=== PATIENT | female | born 1945 | race Caucasian/White ===

== ENCOUNTER 2025-03-19 06:31 | Day surgery (SDC) | payer MEDICARE, OTHER, SELFPAY | END 2025-03-19 14:50 | disposition home or self-care (01) | LOC: GI 06:31 | PROVIDERS: ATTENDING PHYSICIAN Internal Medicine Gastroenterology | DX: Z12.11 Encounter for screening for malignant neoplasm of colon (principal); K64.0 First degree hemorrhoids; K57.30 Diverticulosis of large intestine without perforation or abscess without bleeding; K63.89 Other specified diseases of intestine; R10.13 Epigastric pain; R68.81 Early satiety; K44.9 Diaphragmatic hernia without obstruction or gangrene; K31.89 Other diseases of stomach and duodenum; R14.0 Abdominal distension (gaseous); D12.5 Benign neoplasm of sigmoid colon; K63.5 Polyp of colon; Z86.0100 Personal history of colon polyps, unspecified | CPT/HCPCS: 45385; 45381; 45380; 43239; 88305; 88342 ==

== ENCOUNTER → 2025-04-17 08:43 | Outpatient (REF) | payer MEDICARE, OTHER, SELFPAY | LOC: RAD 08:43 | PROVIDERS: ATTENDING PHYSICIAN Internal Medicine Gastroenterology; FAMILY PHYSICIAN Internal Medicine | DX: K44.9 Diaphragmatic hernia without obstruction or gangrene (principal) | CPT/HCPCS: 74221 ==

== ENCOUNTER → 2025-07-14 07:34 | Outpatient (REF) | payer MEDICARE, OTHER, SELFPAY | LOC: RAD 07:34 | PROVIDERS: ATTENDING PHYSICIAN Internal Medicine Gastroenterology; FAMILY PHYSICIAN Family Medicine | DX: R14.0 Abdominal distension (gaseous) (principal); R68.81 Early satiety | CPT/HCPCS: 78264; A9541 ==

== ENCOUNTER 2025-08-21 08:00 | Emergency (ER) | payer MEDICARE, OTHER, SELFPAY ==
[2025-08-21 08:02] VITALS: BP 182/88
--- NOTE | 2025-08-21 09:09 | ED.GENMED ---
History of Present Illness
General
Chief Complaint: Fall
Time Seen by Provider: 08/21/25 08:50
History of Present Illness
History of Present Illness:
see MDM
Past History
Past History
ED Past Medical History: GERD and Hypercholesterolemia
ED Past Surgical History: Orthopedic
Social History
Tobacco: Non-smoker
Alcohol: None
Personal:
Living: with family
Phy Exam
Physical Exam
Physical Exam:
see MDM
Course
Orders/Labs/Results
Orders:
Orders
08/21/25 08:06
Hand, Right 3 View [CR Hand - Right Min 3 Views] Urgent
Comment:
Reason For Exam: fall, pain
08/21/25 08:30
CT Facial Bones W/o Iv Contras Urgent
Comment:
Reason For Exam: fall, R orbital swelling, pain
CT Head W/o Iv Contrast Urgent
Comment:
Reason For Exam: fall, head strike
08/21/25 09:16
Acetaminophen [Tylenol] 1,000 mg PO NOW STA
08/21/25 10:30
CR Hand - Right Min 3 Views Urgent
Comment:
Reason For Exam: post reduction
Vital Signs
Initial and Last Documented VS:
Initial Vital Signs
Temp Pulse Resp BP Pulse Ox
36.6 C 76 16 182/88 98
08/21/25 08:02 08/21/25 08:02 08/21/25 08:02 08/21/25 08:02 08/21/25 08:02
Last Documented Vital Signs
Temp Pulse Resp BP Pulse Ox
36.6 C 76 16 182/88 98
08/21/25 08:02 08/21/25 08:02 08/21/25 08:02 08/21/25 08:02 08/21/25 09:12
Procedures
Joint/Fracture Reduction
Right Freight Booker:
Indication for procedure:: displaced R 5th metacarpal fx
Procedure completed by: myself
Consent form signed: No
If no, reason: Emergency procedure (verbal)
Joint reduced: without anesthesia
Anesthesia/sedation: Injection to joint space
Injury was: closed
Further treatement: needs further treatment
Post reduction exam: stable
Capillary Refill: normal
Normal distal neurovascular exam?: Yes
MDM/Problems Addressed
Differential Diagnosis Includes:
see MDM
MDM/Problems Addressed:
Note:
CHIEF COMPLAINT(S)
Fall with subsequent dizziness.
HISTORY OF PRESENT ILLNESS
The patient is a 80-year-old female who experienced a fall today while walking the dog at approximately 7:15 AM. She reports witnessing deer by the pond during the event. The patient states she does not believe she lost consciousness. She does not
report any pain in her neck, though she does describe lightheadedness and dizziness following the fall. She also reported facial pain, but no numbness or tingling in her extremities.
The patient managed to get herself up after the incident and walked back home. She has a history of osteoarthritis, osteoporosis, and diverticulitis, commonly referenced as 'gut stuff.' Her blood pressure, cholesterol, and vision are described as
stable, with regular use of corrective eyewear. The patient recently received a tetanus vaccination, likely within the past year.
she denies neck pain, vision changes, chest pain, hip pain, weakness, vomiting, nauesa, dental injury
PAST MEDICAL AND SURIGICAL HISTORY
The patient has a history of osteoarthritis, osteoporosis, and diverticulitis.
CHRONIC MEDICAL CONDITIONS SIGNIFICANTLY AFFECTING CARE
Osteoarthritis, osteoporosis, and diverticulitis.
MEDICATIONS
The patient is currently on anticoagulant therapy.
PHYSICAL EXAM
GENERAL: Alert , in no apparent distress
HEAD: Right periorbital swelling and ecchymosis but can open her eye mild tenderness, mild superficial abrasion to the right zygoma
NECK: no midline tenderness, active ROM intact, no paraspinal muscle tenderness;
EYE: pupils equal and reactive, EOMs intact.
ENT: o/p clr, mmm. no hemotympanum
CARDIAC: Regular rate and rhythm, no edema
LUNGS: Clear breath sounds bilaterally, no acute respiratory distress, no wheezes/rales/rhonchi
ABDOMEN: Soft, without focal tenderness, no r/g, no cvat
NEUROLOGICAL: Alert and oriented, no focal neuro deficits, CN intact, 5/5 strength, sensation intact
SKIN: Warm and dry, superficial abrasion right zygoma
MUSCULOSKELETAL: . Right fifth metacarpal tenderness with swelling soft tissue, no rotation of the fifth digit, otherwise musculoskeletal exam normal
Nursing notes reviewed and vital signs reviewed.
PROBLEM LIST
- Acute: Fall with dizziness, facial pain.
- Chronic: Osteoarthritis and osteoporosis.
PLAN
- Administer acetaminophen (Tylenol) for pain management.
- Await results from the CT scan to rule out facial fractures, brain bleed, or skull fracture.
- Possible referral to an ear, nose, and throat specialist if facial fractures are confirmed.
- Discussed clinical suspicion of a mild concussion; no specific testing is indicated.
DIFFERENTIAL DIAGNOSIS
The Differential Diagnosis includes, in no particular order and is not limited to:
1. Concussion
2. Skull fracture
3. Facial fracture
4. Brain bleed (intracranial hemorrhage)
5. Postural hypotension
6. Syncope
7. Vestibular dysfunction
8. Cardiac arrhythmia
9. Dehydration
10. Medication side-effects
CARE-UPDATE
08/21/25 - 09:09
Consulted with [facility], who recommend applying a splint to the right hand and arranging for follow-up in the orthopedic clinic. The patient is advised to avoid using the right hand to prevent further injury. Pain management includes
acetaminophen as needed. Monitor for any signs of increased swelling, changes in vision, or worsening headaches. The patient understands and agrees with the plan.
*Pulse Oximetry
SaO2: 98
Oxygen Mode of Delivery: Room air
Patient hypoxic: no (98)
*Critical Care Note
Total Time (30-74mins, 75-104mins- exclusive of procedures): Not Applicable
ED Attending Note
-
Portions of this chart may have been created with voice recognition software.� Occasional wrong word or��sound alike� substitutions may have occurred due to the inherent limitations of voice recognition software.
Discharge Plan
Departure
Patient Disposition: Home (Routine Discharge)
Date of Disposition: 08/21/25
Time of Disposition: 11:38
Patient with high blood pressure during this ER visit?: Yes
Condition: Fair
Covid-19: Not Applicable
Discharge Problem:
Fracture of metacarpal, Contusion of face, Concussion
Instructions: Concussion, Adult (DC), Contusion (DC)
Referrals:
Jessa Abbott MD [Family Provider, Family Practice] - Follow up in 2-3 days
Saman Salcido MD [Active, Orthopedics] - Follow up in 5-7 days
Activity Restrictions/Additional Instructions:
You broke your fifth metacarpal. You need to see a hand doctor. Please call and make an appointment. Until then ice on top of the splint and elevate your arm. Take Tylenol for pain. Do not get the splint wet.
You may have a minor concussion but your head scan and facial bones were normal on the CAT scan. This can take time to resolve with headaches and mild dizziness and nausea. Have a light diet, be careful when you go from sitting to standing, rest
your brain by avoiding TV, phone, computer, reading for about 2 days. After that you can return to those activities as normal. If you are still having prolonged symptoms of a concussion please see your doctor. Return to the ER for worst headache
of your life, confusion, double vision, etc.
Interventions
Interventions:
*Risk Screen - Suicide Last Done: 08/21/25 08:02
*General Assessment Last Done: 08/21/25 08:04
*Neglect/Abuse Screening Last Done: 08/21/25 11:45
*ED- Fall Risk Assessment Last Done: 08/21/25 08:04
*ED COVID-19 Vaccine History Last Done: 08/21/25 08:04
*ED Influenza Vaccine History Last Done: 08/21/25 08:04
*Nursing Disposition Last Done: 08/21/25 11:45
ED-Musculoskeletal Assessment Last Done: 08/21/25 09:51
ED- Neurological Assessment Last Done: 08/21/25 09:51
ED-Skin Assessment Last Done: 08/21/25 09:51
Discharge Date and Time
Discharge Date/Time: 08/21/25 11:45
Print Language: SAO TOMEAN
[2025-08-21] MEDS: TYLENOL 1000 MG PO (09:48)
== END 2025-08-21 11:45 | disposition home or self-care (01) ==
LOC: EMR 08:00
PROVIDERS: EMERGENCY PHYSICIAN Student in an Organized Health Care Education/Training Program; FAMILY PHYSICIAN Family Medicine
DX: S62.316A Displaced fracture of base of fifth metacarpal bone, right hand, initial encounter for closed fracture (principal); S00.11XA Contusion of right eyelid and periocular area, initial encounter; S06.0XAA Concussion with loss of consciousness status unknown, initial encounter; W01.0XXA Fall on same level from slipping, tripping and stumbling without subsequent striking against object, initial encounter; Y93.K1 Activity, walking an animal; R03.0 Elevated blood-pressure reading, without diagnosis of hypertension; E78.00 Pure hypercholesterolemia, unspecified; K21.9 Gastro-esophageal reflux disease without esophagitis; M19.90 Unspecified osteoarthritis, unspecified site; M81.0 Age-related osteoporosis without current pathological fracture
CPT/HCPCS: 99284; 70450; 70486; 73130